=== PATIENT | female | born 1970 | race African-American/Black ===

== ENCOUNTER 2018-11-28 00:21 | Inpatient (IN) | payer MEDICARE, MEDICAID ==
[~2018-11-28] VITALS: Ht 162.6 cm; Wt 107.5 kg
[2018-11-28 01:17] LABS: HEMATOCRIT. 30.6 % (36.0-48.0); HEMOGLOBIN. 10.4 g/dL (12.0-16.0); MEAN CORPUSCULAR HEMOGLOBIN 30.3 pg (28.0-32.0); MEAN CORPUSCULAR VOLUME 89.3 fL (81.0-99.0); PLATELET 185 x1000/uL (130-400); RED BLOOD CELL COUNT 3.43 mill/uL (4.2-5.4); RED CELL DISTRIBUTION WIDTH 15.2 % (11.6-14.6)
[2018-11-28 01:24] LABS: CHLORIDE 110 mEq/L (98-107)
[2018-11-28 01:27] LABS: ETHANOL BLOOD < 10 mg/dL
[2018-11-28 01:27] LABS: CLARITY URINE CLEAR (CLEAR); COLOR URINE YELLOW (YELLOW); KETONES URINE NEGATIVE (NEGATIVE); LEUKOCYTE ESTERASE URINE NEGATIVE (NEGATIVE); NITRITE URINE NEGATIVE (NEGATIVE); OCCULT BLOOD URINE NEGATIVE (NEGATIVE); PH URINE 5.5 (4.5-8.0); PROTEIN URINE 2+ (NEGATIVE); SPECIFIC GRAVITY URINE 1.006 (1.005-1.030); UROBILINOGEN URINE 0.2 E.U./dL (0.2-1.0)
[2018-11-28 01:38] LABS: *AMPHETAMINES SCREEN URINE NEGATIVE (NEGATIVE); *BARBITURATES SCREEN URINE NEGATIVE (NEGATIVE); *BENZODIAZEPINES SCREEN URINE NEGATIVE (NEGATIVE); *COCAINE SCREEN URINE NEGATIVE (NEGATIVE)
[2018-11-28 01:39] LABS: CANNABINOID URINE SCREEN NEGATIVE (NEGATIVE); METHADONE URINE SCREEN NEGATIVE (NEGATIVE); OPIATES URINE SCREEN NEGATIVE (NEGATIVE); PHENCYCLIDINE URINE SCREEN NEGATIVE (NEGATIVE)
[2018-11-28 03:19] LABS: PLATELET ESTIMATE NORMAL
[2018-11-28] MEDS ORDERED: SODIUM CHLORIDE 0.9% 1,000 ML IV SCH (08:07)
[2018-11-28] MEDS ORDERED: ACETAMINOPHEN 650MG/20.3ML UDC GT PRN (08:15)
[2018-11-28] MEDS ORDERED: DIPHENHYDRAMINE 50MG/ML VIAL IV PRN (08:15)
[2018-11-28] MEDS ORDERED: DOCUSATE SODIUM 100MG CAPSULE PO PRN (08:15)
[2018-11-28] MEDS ORDERED: ACETAMINOPHEN 650MG SUPP PR PRN (08:15)
[2018-11-28] MEDS ORDERED: ONDANSETRON HCL 4MG/2ML INJ IV PRN (08:15)
[2018-11-28] MEDS ORDERED: IPRATROPIUM/ALBUTEROL 0.5-3(2.5)MG/3ML NEB INH PRN (08:15)
[2018-11-28] MEDS ORDERED: NA PHOS,M-B/NA PHOS,DI-BA ENEMA 118ML PR PRN (08:15)
[2018-11-28 11:31] LABS: CHLORIDE 114 mEq/L (98-107)
[2018-11-28 11:34] LABS: BASOPHILS % 1.2 % (0.0-2.0); EOSINOPHILS % 2.3 % (0.0-5.0); HEMATOCRIT. 32.3 % (36.0-48.0); HEMOGLOBIN. 10.8 g/dL (12.0-16.0); LYMPHOCYTES % 31.9 % (20.0-50.0); MEAN CORPUSCULAR HEMOGLOBIN 30.2 pg (28.0-32.0); MEAN CORPUSCULAR VOLUME 90.1 fL (81.0-99.0); MEAN PLATELET VOLUME 8.4 fl (7.4-10.4); MONOCYTES % 11.2 % (2.0-8.0); NEUTROPHILS % 53.4 % (40.0-76.0); PLATELET 180 x1000/uL (130-400); RED BLOOD CELL COUNT 3.59 mill/uL (4.2-5.4); RED CELL DISTRIBUTION WIDTH 15.4 % (11.6-14.6)
[2018-11-29] MEDS: HYDROCODONE/ACETAMINOPHEN 5/325MG TABLET PO PRN ×2 (00:48→22:29)
[2018-11-29 04:56] LABS: BASOPHILS % 0.9 % (0.0-2.0); EOSINOPHILS % 0.9 % (0.0-5.0); HEMATOCRIT. 31.8 % (36.0-48.0); HEMOGLOBIN. 10.7 g/dL (12.0-16.0); LYMPHOCYTES % 21.2 % (20.0-50.0); MEAN CORPUSCULAR HEMOGLOBIN 30.2 pg (28.0-32.0); MEAN CORPUSCULAR VOLUME 89.5 fL (81.0-99.0); MEAN PLATELET VOLUME 8.4 fl (7.4-10.4); MONOCYTES % 10.2 % (2.0-8.0); NEUTROPHILS % 66.8 % (40.0-76.0); PLATELET 182 x1000/uL (130-400); RED BLOOD CELL COUNT 3.56 mill/uL (4.2-5.4); RED CELL DISTRIBUTION WIDTH 15.6 % (11.6-14.6)
[2018-11-29 05:01] LABS: CHLORIDE 112 mEq/L (98-107)
[2018-11-29 05:08] LABS: LDL CHOLESTEROL 42 mg/dL (5-100)
[2018-11-29 05:09] LABS: HDL CHOLESTEROL 62 mg/dL (40-59)
[2018-11-29 13:38] VITALS: BP 140/98
[2018-11-29 14:07] VITALS: BP 140/98
[2018-11-29] MEDS ORDERED: TRAZ-213 MT (15:02)
[2018-11-29] MEDS ORDERED: DIVA-18 MT (15:02)
[2018-11-29] MEDS ORDERED: METO100T16 PO (15:02)
[2018-11-29] MEDS ORDERED: AMLO10TA4 MT (15:02)
[2018-11-29] MEDS ORDERED: QUET200T MT (15:02)
[2018-11-29] MEDS: SODIUM CHLORIDE 0.45% 1,000 ML IV SCH (16:14)
[2018-11-29] MEDS: SODIUM CHLORIDE 0.9% INJ 3ML FLUSH IVF SCH ×2 (16:24→21:11)
[2018-11-29 16:30] VITALS: BP 142/98
[2018-11-29] MEDS: AMLODIPINE 10MG TABLET PO SCH (18:32)
[2018-11-29 20:00] VITALS: BP 134/91
[2018-11-29] MEDS: QUETIAPINE FUMARATE 100MG TABLET PO SCH (21:11)
[2018-11-30 00:11] VITALS: BP 131/69
[2018-11-30] MEDS: SODIUM CHLORIDE 0.45% 1,000 ML IV SCH ×2 (00:23→12:20)
[2018-11-30 04:12] VITALS: BP 137/88
[2018-11-30] MEDS: SODIUM CHLORIDE 0.9% INJ 3ML FLUSH IVF SCH ×3 (06:16→21:30)
[2018-11-30 07:56] VITALS: BP 127/79
[2018-11-30] MEDS: AMLODIPINE 10MG TABLET PO SCH (08:51)
[2018-11-30 11:07] LABS: HEMATOCRIT. 29.6 % (36.0-48.0); HEMOGLOBIN. 9.8 g/dL (12.0-16.0); MEAN CORPUSCULAR HEMOGLOBIN 30.3 pg (28.0-32.0); MEAN CORPUSCULAR VOLUME 91.7 fL (81.0-99.0); PLATELET 164 x1000/uL (130-400); RED BLOOD CELL COUNT 3.23 mill/uL (4.2-5.4); RED CELL DISTRIBUTION WIDTH 15.3 % (11.6-14.6)
[2018-11-30 11:13] LABS: CHLORIDE 109 mEq/L (98-107)
[2018-11-30 11:47] LABS: PLATELET ESTIMATE NORMAL
[2018-11-30 12:00] VITALS: BP 131/62
[2018-11-30] MEDS ORDERED: SODIUM CHLORIDE 0.45% 1,000 ML IV SCH (15:00)
[2018-11-30 16:00] VITALS: BP 140/86
[2018-11-30 16:45] LABS: *AMPHETAMINES SCREEN URINE NEGATIVE (NEGATIVE)
[2018-11-30 16:46] LABS: *BARBITURATES SCREEN URINE NEGATIVE (NEGATIVE); *BENZODIAZEPINES SCREEN URINE NEGATIVE (NEGATIVE); *COCAINE SCREEN URINE NEGATIVE (NEGATIVE); METHADONE URINE SCREEN NEGATIVE (NEGATIVE); OPIATES URINE SCREEN NEGATIVE (NEGATIVE); PHENCYCLIDINE URINE SCREEN NEGATIVE (NEGATIVE)
[2018-11-30 16:47] LABS: CANNABINOID URINE SCREEN NEGATIVE (NEGATIVE)
[2018-11-30] MEDS: SODIUM CHLORIDE 45ML SPRAY NS PRN (18:57)
[2018-11-30 20:00] VITALS: BP 144/91
[2018-11-30] MEDS: QUETIAPINE FUMARATE 100MG TABLET PO SCH (21:30)
[2018-12-01] VITALS: BP 121/76
[2018-12-01 04:00] VITALS: BP 120/88
[2018-12-01] MEDS: SODIUM CHLORIDE 45ML SPRAY NS PRN (05:39)
[2018-12-01] MEDS: SODIUM CHLORIDE 0.9% INJ 3ML FLUSH IVF SCH ×3 (05:40→21:30)
[2018-12-01 07:55] VITALS: BP 118/76
[2018-12-01] MEDS: AMLODIPINE 10MG TABLET PO SCH (08:48)
[2018-12-01 12:00] VITALS: BP 136/90
[2018-12-01] MEDS: MAGNESIUM/ALUMINUM HYDROXIDE/SIMETHICONE 30ML UDC PO PRN (14:01)
[2018-12-01 16:00] VITALS: BP 144/88
[2018-12-01 18:03] LABS: HCG SCREEN NEGATIVE
[2018-12-01 19:23] LABS: UCG SCREEN NEGATIVE
[2018-12-01 20:00] VITALS: BP 152/96
[2018-12-01] MEDS: ACETAMINOPHEN 325MG TABLET PO PRN (20:46)
[2018-12-01] MEDS: QUETIAPINE FUMARATE 100MG TABLET PO SCH ×2 (20:46→21:00)
[2018-12-02] VITALS: BP 142/85
[2018-12-02 04:00] VITALS: BP 138/96
[2018-12-02] MEDS: SODIUM CHLORIDE 0.9% INJ 3ML FLUSH IVF SCH ×3 (06:03→22:23)
[2018-12-02] MEDS: AMLODIPINE 10MG TABLET PO SCH (10:00)
[2018-12-02 12:00] VITALS: BP 154/94
[2018-12-02] MEDS: HYDROCODONE/ACETAMINOPHEN 5/325MG TABLET PO PRN (12:25)
[2018-12-02 16:00] VITALS: BP 166/102
[2018-12-02] MEDS: CLONIDINE 0.1MG TABLET PO PRN (18:42)
[2018-12-02 19:39] VITALS: BP 166/113
[2018-12-02 21:40] VITALS: BP 147/93
[2018-12-02] MEDS: QUETIAPINE FUMARATE 100MG TABLET PO SCH (22:23)
[2018-12-03] VITALS: BP 159/102
[2018-12-03] MEDS: MAGNESIUM/ALUMINUM HYDROXIDE/SIMETHICONE 30ML UDC PO PRN (00:31)
[2018-12-03 04:00] VITALS: BP 140/99
[2018-12-03] MEDS: SODIUM CHLORIDE 0.9% INJ 3ML FLUSH IVF SCH ×3 (05:52→20:34)
[2018-12-03 08:00] VITALS: BP 158/110
[2018-12-03] MEDS: AMLODIPINE 10MG TABLET PO SCH (08:37)
[2018-12-03 12:00] VITALS: BP 148/97
[2018-12-03 13:29] LABS: HEMOGLOBIN. 11.2 g/dL (12.0-16.0); MEAN CORPUSCULAR HEMOGLOBIN 29.5 pg (28.0-32.0); MEAN CORPUSCULAR VOLUME 89.9 fL (81.0-99.0); MEAN PLATELET VOLUME 8.2 fl (7.4-10.4); PLATELET 199 x1000/uL (130-400); RED BLOOD CELL COUNT 3.78 mill/uL (4.2-5.4)
[2018-12-03 13:37] LABS: CHLORIDE 105 mEq/L (98-107)
[2018-12-03 14:01] LABS: PLATELET ESTIMATE NORMAL
[2018-12-03 16:00] VITALS: BP 150/105
[2018-12-03] MEDS: QUETIAPINE FUMARATE 100MG TABLET PO SCH (20:34)
[2018-12-04 04:00] VITALS: BP 177/86
[2018-12-04 08:00] VITALS: BP 150/113
[2018-12-04] MEDS: AMLODIPINE 10MG TABLET PO SCH (08:33)
[2018-12-04] MEDS: LORAZEPAM 1MG TABLET PO PRN ×2 (11:07→11:13)
[2018-12-04 12:00] VITALS: BP 164/101
[2018-12-04] MEDS: CLONIDINE 0.1MG TABLET PO PRN ×2 (12:57→16:34)
[2018-12-04] MEDS ORDERED: LORAZEPAM 0.5MG TABLET PO SCH (13:30)
[2018-12-04] MEDS: SODIUM CHLORIDE 0.9% INJ 3ML FLUSH IVF SCH ×2 (14:00→21:06)
[2018-12-04] MEDS: DIVALPROEX SODIUM 250MG DR TABLET PO SCH ×2 (16:34→21:06)
[2018-12-04] MEDS: QUETIAPINE FUMARATE 100MG TABLET PO SCH (20:56)
[2018-12-04] MEDS: TRAZODONE HCL 100MG TABLET PO SCH (20:56)
[2018-12-05 04:00] VITALS: BP 152/105
[2018-12-05] MEDS: SODIUM CHLORIDE 0.9% INJ 3ML FLUSH IVF SCH ×4 (05:01→22:00)
[2018-12-05 08:00] VITALS: BP 139/88
[2018-12-05] MEDS: LORAZEPAM 1MG TABLET PO PRN (08:42)
[2018-12-05] MEDS: DIVALPROEX SODIUM 250MG DR TABLET PO SCH ×2 (10:38→21:37)
[2018-12-05] MEDS: AMLODIPINE 10MG TABLET PO SCH (10:39)
[2018-12-05 12:00] VITALS: BP 140/92
[2018-12-05] MEDS ORDERED: QUETIAPINE FUMARATE 100MG TABLET PO SCH (12:00)
[2018-12-05 16:00] VITALS: BP 148/86
[2018-12-05] MEDS: ACETAMINOPHEN 325MG TABLET PO PRN (17:04)
[2018-12-05 17:17] LABS: BASOPHILS % 1.1 % (0.0-2.0); EOSINOPHILS % 0.9 % (0.0-5.0); HEMATOCRIT. 33.4 % (36.0-48.0); HEMOGLOBIN. 11.2 g/dL (12.0-16.0); LYMPHOCYTES % 34.1 % (20.0-50.0); MEAN CORPUSCULAR HEMOGLOBIN 30.1 pg (28.0-32.0); MEAN CORPUSCULAR VOLUME 90.2 fL (81.0-99.0); MEAN PLATELET VOLUME 8.4 fl (7.4-10.4); NEUTROPHILS % 50.9 % (40.0-76.0); PLATELET 211 x1000/uL (130-400); RED BLOOD CELL COUNT 3.71 mill/uL (4.2-5.4); RED CELL DISTRIBUTION WIDTH 15.1 % (11.6-14.6)
[2018-12-05 17:47] LABS: HEPATITIS B SURFACE ANTIGEN NEGATIVE
[2018-12-05 18:16] LABS: HEPATITIS A AB IGM NEGATIVE (NEGATIVE)
[2018-12-05 19:43] LABS: CHLORIDE 107 mEq/L (98-107)
[2018-12-05] MEDS: QUETIAPINE FUMARATE 100MG TABLET PO SCH (21:37)
[2018-12-05] MEDS: TRAZODONE HCL 100MG TABLET PO SCH (21:37)
[2018-12-06 04:00] VITALS: BP 133/85
[2018-12-06] MEDS: SODIUM CHLORIDE 0.9% INJ 3ML FLUSH IVF SCH (05:52)
[2018-12-06 08:00] VITALS: BP 128/82
[2018-12-06] MEDS: DIVALPROEX SODIUM 250MG DR TABLET PO SCH ×2 (08:31→20:57)
[2018-12-06] MEDS: AMLODIPINE 10MG TABLET PO SCH (08:32)
[2018-12-06] MEDS: MAGNESIUM/ALUMINUM HYDROXIDE/SIMETHICONE 30ML UDC PO PRN (12:05)
[2018-12-06 12:30] VITALS: BP 126/88
[2018-12-06 13:22] LABS: HEMATOCRIT. 31.8 % (36.0-48.0); HEMOGLOBIN. 10.5 g/dL (12.0-16.0); MEAN CORPUSCULAR HEMOGLOBIN 29.8 pg (28.0-32.0); MEAN PLATELET VOLUME 8.2 fl (7.4-10.4); PLATELET 208 x1000/uL (130-400); RED BLOOD CELL COUNT 3.53 mill/uL (4.2-5.4); RED CELL DISTRIBUTION WIDTH 14.8 % (11.6-14.6)
[2018-12-06 13:30] LABS: CHLORIDE 106 mEq/L (98-107)
[2018-12-06 13:52] LABS: PLATELET ESTIMATE NORMAL
[2018-12-06 16:30] VITALS: BP 132/82
[2018-12-06 20:00] VITALS: BP 118/71
[2018-12-06] MEDS: QUETIAPINE FUMARATE 100MG TABLET PO SCH (20:57)
[2018-12-06] MEDS: TRAZODONE HCL 100MG TABLET PO SCH (20:57)
[2018-12-06] MEDS: ACETAMINOPHEN 325MG TABLET PO PRN (20:58)
[2018-12-07] VITALS: BP 119/78
[2018-12-07] MEDS: LORAZEPAM 1MG TABLET PO PRN ×2 (00:38→17:20)
[2018-12-07 04:00] VITALS: BP 143/89
[2018-12-07 08:00] VITALS: BP 125/76
[2018-12-07] MEDS: AMLODIPINE 10MG TABLET PO SCH (09:15)
[2018-12-07] MEDS: DIVALPROEX SODIUM 250MG DR TABLET PO SCH ×2 (09:15→21:07)
[2018-12-07] MEDS: ACETAMINOPHEN 325MG TABLET PO PRN (09:18)
[2018-12-07 12:00] VITALS: BP 117/95
[2018-12-07 16:00] VITALS: BP 141/105
[2018-12-07 20:00] VITALS: BP 154/88
[2018-12-07] MEDS: TRAZODONE HCL 100MG TABLET PO SCH (21:06)
[2018-12-07] MEDS: QUETIAPINE FUMARATE 100MG TABLET PO SCH (21:07)
[2018-12-08] VITALS: BP 117/76
[2018-12-08 04:00] VITALS: BP 126/70
[2018-12-08 08:00] VITALS: BP 136/91
[2018-12-08] MEDS: LORAZEPAM 1MG TABLET PO PRN (08:39)
[2018-12-08] MEDS: DIVALPROEX SODIUM 250MG DR TABLET PO SCH (08:40)
[2018-12-08] MEDS: AMLODIPINE 10MG TABLET PO SCH (08:40)
[2018-12-08 12:00] VITALS: BP 131/77
[2018-12-08 15:48] VITALS: BP 131/77
== END 2018-12-08 16:58 | disposition home or self-care (01) | DRG 917 ==
LOC: ER 00:21 → CANBEDREQ 10:28 → 6WST 11-29 04:08 → ENRESERV 11-29 12:05
PROVIDERS: ADMIT Family Medicine; ATTEND Family Medicine
DX: T42.6X2A Poisoning by other antiepileptic and sedative-hypnotic drugs, intentional self-harm, initial encounter (principal); G92 Toxic encephalopathy; N17.9 Acute kidney failure, unspecified; E44.0 Moderate protein-calorie malnutrition; Z68.41 Body mass index [BMI] 40.0-44.9, adult; D63.8 Anemia in other chronic diseases classified elsewhere; E11.22 Type 2 diabetes mellitus with diabetic chronic kidney disease; E66.9 Obesity, unspecified; I12.9 Hypertensive chronic kidney disease with stage 1 through stage 4 chronic kidney disease, or unspecified chronic kidney disease; J44.9 Chronic obstructive pulmonary disease, unspecified; N18.9 Chronic kidney disease, unspecified; F31.9 Bipolar disorder, unspecified; Z88.8 Allergy status to other drugs, medicaments and biological substances; Y92.89 Other specified places as the place of occurrence of the external cause
CPT/HCPCS: 36415; 71045; 76700; 80061; 80076; 80165; 80185; 80305; 80307; 80320; 80329; 81025; 82140; 84703; 86705; 86709; 86803; 87340; 93005; 97161; 99284; 99291; C1893; J7030; G0480

== ENCOUNTER 2019-02-26 04:00 | Emergency (ER) | payer MEDICARE, MEDICAID ==
[~2019-02-26] VITALS: Ht 167.6 cm; Wt 82.0 kg
[~2019-02-26 04:00] MED LIST: AMLO10TA4 MT; DIVA-18 MT; METO100T16 PO; QUET200T MT; TRAZ-213 MT
[2019-02-26] MEDS ORDERED: MAGNESIUM/ALUMINUM HYDROXIDE/SIMETHICONE 30ML UDC PO ONE (04:45)
[2019-02-26] MEDS ORDERED: VISCOUS LIDOCAINE 2% 15 ML UDC PO ONE (04:45)
[2019-02-26 06:25] LABS: BASOPHILS % 0.7 % (0.0-2.0); EOSINOPHILS % 2.7 % (0.0-5.0); HEMATOCRIT. 34.3 % (36.0-48.0); HEMOGLOBIN. 11.4 g/dL (12.0-16.0); LYMPHOCYTES % 27.6 % (20.0-50.0); MEAN CORPUSCULAR HEMOGLOBIN 29.9 pg (28.0-32.0); MEAN CORPUSCULAR VOLUME 89.8 fL (81.0-99.0); MEAN PLATELET VOLUME 8.9 fl (7.4-10.4); MONOCYTES % 8.6 % (2.0-8.0); NEUTROPHILS % 60.4 % (40.0-76.0); PLATELET 222 x1000/uL (130-400); RED BLOOD CELL COUNT 3.82 mill/uL (4.2-5.4); RED CELL DISTRIBUTION WIDTH 13.9 % (11.6-14.6)
[2019-02-26 06:26] LABS: CHLORIDE 108 mEq/L (98-107)
[2019-02-26 06:29] LABS: ETHANOL BLOOD < 10 mg/dL
[2019-02-26 12:42] VITALS: BP 128/87
== END 2019-02-26 13:09 | disposition home or self-care (01) ==
LOC: ER 04:00
DX: R45.851 Suicidal ideations (principal); R07.89 Other chest pain; R00.0 Tachycardia, unspecified; Z76.5 Malingerer [conscious simulation]
CPT/HCPCS: 36415; 80320; 84484; 99283; G0480

== ENCOUNTER 2019-02-27 10:01 | Emergency (ER) | payer MEDICARE, MEDICAID ==
[~2019-02-27] VITALS: Ht 167.6 cm; Wt 80.0 kg
[2019-02-27 10:06] VITALS: BP 126/94
== END 2019-02-27 11:53 | disposition left against medical advice (07) ==
LOC: ER 10:01
DX: R05 Cough (principal); R09.81 Nasal congestion; Z53.21 Procedure and treatment not carried out due to patient leaving prior to being seen by health care provider

== ENCOUNTER 2019-02-27 11:43 | Emergency (ER) | payer MEDICARE, MEDICAID ==
[~2019-02-27] VITALS: Ht 167.6 cm; Wt 90.0 kg
[2019-02-27 14:00] VITALS: BP 121/78
== END 2019-02-27 14:00 | disposition home or self-care (01) ==
LOC: ER 11:44
DX: R07.89 Other chest pain (principal); Z59.0 Homelessness; J44.9 Chronic obstructive pulmonary disease, unspecified; E11.9 Type 2 diabetes mellitus without complications; I10 Essential (primary) hypertension; I25.2 Old myocardial infarction; M79.7 Fibromyalgia; Z79.899 Other long term (current) drug therapy; Z88.8 Allergy status to other drugs, medicaments and biological substances
CPT/HCPCS: 36415; 84484; 93005; 99284

== ENCOUNTER 2019-03-10 15:02 | Inpatient (IN) | payer MEDICARE, MEDICAID ==
[~2019-03-10] VITALS: Ht 162.6 cm; Wt 97.5 kg
[2019-03-10] MEDS ORDERED: MORPHINE SULFATE 4 MG/ML CPJ (NOT FOR IM USE) IV STA (15:25)
[2019-03-10 16:00] LABS: CHLORIDE 105 mEq/L (98-107)
[2019-03-10 16:04] LABS: EOSINOPHILS % 4.6 % (0.0-5.0); HEMATOCRIT. 31.1 % (36.0-48.0); HEMOGLOBIN. 10.5 g/dL (12.0-16.0); LYMPHOCYTES % 28.8 % (20.0-50.0); MEAN CORPUSCULAR HEMOGLOBIN 29.9 pg (28.0-32.0); MEAN CORPUSCULAR VOLUME 88.4 fL (81.0-99.0); MEAN PLATELET VOLUME 8.3 fl (7.4-10.4); MONOCYTES % 6.9 % (2.0-8.0); NEUTROPHILS % 58.7 % (40.0-76.0); PLATELET 263 x1000/uL (130-400); RED BLOOD CELL COUNT 3.52 mill/uL (4.2-5.4); RED CELL DISTRIBUTION WIDTH 13.6 % (11.6-14.6)
[2019-03-10] MEDS ORDERED: IPRATROPIUM/ALBUTEROL 0.5-3(2.5)MG/3ML NEB INH PRN (18:15)
[2019-03-10] MEDS ORDERED: DOCUSATE SODIUM 100MG CAPSULE PO PRN (18:15)
[2019-03-10] MEDS ORDERED: LORAZEPAM 0.5MG TABLET PO PRN (18:15)
[2019-03-10] MEDS ORDERED: ONDANSETRON HCL 4MG/2ML INJ IV PRN (18:15)
[2019-03-10] MEDS ORDERED: CLONIDINE 0.1MG TABLET PO PRN (18:15)
[2019-03-10] MEDS ORDERED: HYDROCODONE/ACETAMINOPHEN 5/325MG TABLET PO PRN (18:15)
[2019-03-10] MEDS ORDERED: ACETAMINOPHEN 325MG TABLET PO PRN (18:15)
[2019-03-10 18:38] LABS: CLARITY URINE CLOUDY (CLEAR); COLOR URINE YELLOW (YELLOW); KETONES URINE NEGATIVE (NEGATIVE); LEUKOCYTE ESTERASE URINE TRACE (NEGATIVE); NITRITE URINE NEGATIVE (NEGATIVE); OCCULT BLOOD URINE NEGATIVE (NEGATIVE); PROTEIN URINE 2+ (NEGATIVE); SPECIFIC GRAVITY URINE 1.008 (1.005-1.030); UROBILINOGEN URINE 0.2 E.U./dL (0.2-1.0)
[2019-03-10 18:54] LABS: *AMPHETAMINES SCREEN URINE NEGATIVE (NEGATIVE); *BARBITURATES SCREEN URINE NEGATIVE (NEGATIVE); *BENZODIAZEPINES SCREEN URINE NEGATIVE (NEGATIVE); *COCAINE SCREEN URINE NEGATIVE (NEGATIVE); METHADONE URINE SCREEN NEGATIVE (NEGATIVE)
[2019-03-10 18:55] LABS: CANNABINOID URINE SCREEN NEGATIVE (NEGATIVE); OPIATES URINE SCREEN NEGATIVE (NEGATIVE); PHENCYCLIDINE URINE SCREEN NEGATIVE (NEGATIVE)
[2019-03-10 22:00] VITALS: BP 126/93
[2019-03-11 00:12] LABS: CREATINE KINASE MB FRACTION 5.5 ng/mL (0.5-3.6)
[2019-03-11 04:00] VITALS: BP 108/59
[2019-03-11 05:22] LABS: BASOPHILS % 0.8 % (0.0-2.0); EOSINOPHILS % 5.2 % (0.0-5.0); HEMATOCRIT. 30.1 % (36.0-48.0); LYMPHOCYTES % 36.2 % (20.0-50.0); MEAN CORPUSCULAR HEMOGLOBIN 29.6 pg (28.0-32.0); MEAN CORPUSCULAR VOLUME 88.8 fL (81.0-99.0); MEAN PLATELET VOLUME 8.3 fl (7.4-10.4); MONOCYTES % 8.7 % (2.0-8.0); NEUTROPHILS % 49.1 % (40.0-76.0); PLATELET 253 x1000/uL (130-400); RED BLOOD CELL COUNT 3.39 mill/uL (4.2-5.4); RED CELL DISTRIBUTION WIDTH 13.6 % (11.6-14.6)
[2019-03-11 06:12] LABS: CHLORIDE 105 mEq/L (98-107)
[2019-03-11 06:27] LABS: LDL CHOLESTEROL 56 mg/dL (5-100)
[2019-03-11 06:30] LABS: HDL CHOLESTEROL 50 mg/dL (40-59)
[2019-03-11 08:00] VITALS: BP 150/86
[2019-03-11 12:00] VITALS: BP 140/94
[2019-03-11] MEDS: NICOTINE 14MG PATCH TD SCH (15:45)
[2019-03-11 16:00] VITALS: BP 140/86
[2019-03-11] MEDS: AMLODIPINE 10MG TABLET PO SCH (16:18)
[2019-03-11] MEDS: METHYLPREDNISOLONE SOD SUCC 40 MG/ML VIAL IV SCH ×2 (16:19→22:36)
[2019-03-11] MEDS: DIVALPROEX SODIUM 500MG ER TABLET PO SCH (16:19)
[2019-03-11 20:00] VITALS: BP 129/88
[2019-03-11] MEDS: CARBAMAZEPINE 200MG TABLET PO SCH (20:47)
[2019-03-11] MEDS: METOPROLOL TARTRATE 25MG TABLET PO SCH (20:48)
[2019-03-11] MEDS ORDERED: TRAZODONE HCL 50MG TABLET PO SCH (21:00)
[2019-03-11] MEDS ORDERED: QUETIAPINE FUMARATE 50MG TABLET PO SCH (21:00)
[2019-03-11] MEDS: IPRATROPIUM/ALBUTEROL 0.5-3(2.5)MG/3ML NEB HHN SCH (21:36)
[2019-03-11] MEDS: BUDESONIDE 0.5MG/2ML NEB HHN SCH (21:36)
[2019-03-12] VITALS: BP 116/61
[2019-03-12] MEDS: IPRATROPIUM/ALBUTEROL 0.5-3(2.5)MG/3ML NEB HHN SCH ×4 (01:10→12:09)
[2019-03-12 04:00] VITALS: BP 145/86
[2019-03-12] MEDS: METHYLPREDNISOLONE SOD SUCC 40 MG/ML VIAL IV SCH ×2 (05:27→14:00)
[2019-03-12] MEDS: BUDESONIDE 0.5MG/2ML NEB HHN SCH (07:55)
[2019-03-12 08:00] VITALS: BP 136/88
[2019-03-12] MEDS: NICOTINE 14MG PATCH TD SCH (09:00)
[2019-03-12 09:15] LABS: BASOPHILS % 0.4 % (0.0-2.0); EOSINOPHILS % 0.4 % (0.0-5.0); HEMATOCRIT. 28.8 % (36.0-48.0); HEMOGLOBIN. 9.6 g/dL (12.0-16.0); LYMPHOCYTES % 17.1 % (20.0-50.0); MEAN CORPUSCULAR HEMOGLOBIN 29.6 pg (28.0-32.0); MEAN CORPUSCULAR VOLUME 88.8 fL (81.0-99.0); MEAN PLATELET VOLUME 8.2 fl (7.4-10.4); MONOCYTES % 1.8 % (2.0-8.0); NEUTROPHILS % 80.3 % (40.0-76.0); PLATELET 221 x1000/uL (130-400); RED BLOOD CELL COUNT 3.25 mill/uL (4.2-5.4); RED CELL DISTRIBUTION WIDTH 13.5 % (11.6-14.6)
[2019-03-12 09:19] LABS: HCG SCREEN NEGATIVE
[2019-03-12] MEDS: DIVALPROEX SODIUM 500MG ER TABLET PO SCH (09:54)
[2019-03-12] MEDS: CARBAMAZEPINE 200MG TABLET PO SCH (09:54)
[2019-03-12] MEDS: AMLODIPINE 10MG TABLET PO SCH (09:55)
[2019-03-12] MEDS: METOPROLOL TARTRATE 25MG TABLET PO SCH (09:55)
[2019-03-12 12:00] VITALS: BP 114/73
[2019-03-12 15:09] VITALS: BP 114/73
[2019-03-12 16:00] VITALS: BP 126/63
== END 2019-03-12 15:46 | disposition home or self-care (01) | DRG 205 ==
LOC: ER 15:02 → 6WST 17:05 → ENRESERV 20:42
PROVIDERS: ADMIT Internal Medicine; ATTEND Internal Medicine
DX: M94.0 Chondrocostal junction syndrome [Tietze] (principal); J96.00 Acute respiratory failure, unspecified whether with hypoxia or hypercapnia; J44.1 Chronic obstructive pulmonary disease with (acute) exacerbation; N39.0 Urinary tract infection, site not specified; D64.9 Anemia, unspecified; D72.1 Eosinophilia; E11.22 Type 2 diabetes mellitus with diabetic chronic kidney disease; E66.9 Obesity, unspecified; F17.210 Nicotine dependence, cigarettes, uncomplicated; E78.5 Hyperlipidemia, unspecified; F31.9 Bipolar disorder, unspecified; G40.909 Epilepsy, unspecified, not intractable, without status epilepticus; I12.9 Hypertensive chronic kidney disease with stage 1 through stage 4 chronic kidney disease, or unspecified chronic kidney disease; I25.10 Atherosclerotic heart disease of native coronary artery without angina pectoris; F41.9 Anxiety disorder, unspecified; N18.2 Chronic kidney disease, stage 2 (mild); M79.7 Fibromyalgia; Z79.84 Long term (current) use of oral hypoglycemic drugs; F19.10 Other psychoactive substance abuse, uncomplicated; I25.2 Old myocardial infarction; Z79.899 Other long term (current) drug therapy; Z91.5 Personal history of self-harm; Z88.8 Allergy status to other drugs, medicaments and biological substances; Z71.3 Dietary counseling and surveillance; Z95.5 Presence of coronary angioplasty implant and graft; Z72.89 Other problems related to lifestyle; Z71.6 Tobacco abuse counseling; Z68.36 Body mass index [BMI] 36.0-36.9, adult
CPT/HCPCS: 36415; 71045; 80048; 80061; 80305; 82550; 82553; 82728; 82962; 83036; 83540; 83550; 83880; 84145; 84443; 84484; 84703; 93005; 93306; 94640; 96374; 99285; J2270; J2920; J7620; J7626

== ENCOUNTER 2019-03-24 22:31 | Inpatient (IN) | payer MEDICAID, MEDICARE ==
[~2019-03-24] VITALS: Ht 162.6 cm; Wt 95.7 kg
[~2019-03-24 22:31] MED LIST changes: -AMLO10TA4 MT; +AMLO10TA4 PO; -DIVA-18 MT; +DIVA-18 PO; -METO100T16 PO; -QUET200T MT; +QUET200T PO; -TRAZ-213 MT; +TRAZ-213 PO
[2019-03-24] MEDS ORDERED: METHYLPREDNISOLONE SOD SUCC 125 MG/2 ML VIAL IV STA (23:03)
[2019-03-24] MEDS ORDERED: ALBUTEROL (0.083%) 2.5MG/3ML NEB HHN STA (23:03)
[2019-03-24] MEDS ORDERED: HYDROCODONE/ACETAMINOPHEN 5/325MG TABLET PO STA (23:03)
[2019-03-24] MEDS ORDERED: IPRATROPIUM BROMIDE (0.02%) 0.5MG/2.5ML NEB HHN STA (23:03)
[2019-03-24] MEDS ORDERED: MAGNESIUM 2 G PREMIX 50 ML IV ONE (23:15)
[2019-03-24] MEDS ORDERED: NITROGLYCERIN 0.4MG TABLET SL SL PRN (23:15)
[2019-03-24 23:49] LABS: BASOPHILS % 0.6 % (0.0-2.0); CHLORIDE 107 mEq/L (98-107); EOSINOPHILS % 3.3 % (0.0-5.0); HEMATOCRIT. 29.4 % (36.0-48.0); HEMOGLOBIN. 10.1 g/dL (12.0-16.0); MEAN CORPUSCULAR VOLUME 87.8 fL (81.0-99.0); MEAN PLATELET VOLUME 8.5 fl (7.4-10.4); MONOCYTES % 9.4 % (2.0-8.0); NEUTROPHILS % 53.7 % (40.0-76.0); PLATELET 193 x1000/uL (130-400); RED BLOOD CELL COUNT 3.35 mill/uL (4.2-5.4); RED CELL DISTRIBUTION WIDTH 14.1 % (11.6-14.6)
[2019-03-25] MEDS ORDERED: ACETAMINOPHEN 500MG TABLET PO ONE (00:15)
[2019-03-25] MEDS ORDERED: PREDNISONE 20MG TABLET PO ONE (00:15)
[2019-03-25 03:00] VITALS: BP 143/80
[2019-03-25] MEDS ORDERED: CARB200T PO (03:06)
[2019-03-25 04:00] VITALS: BP 147/90
[2019-03-25] MEDS ORDERED: MORPHINE SULFATE 2 MG/ML CPJ (NOT FOR IM USE) IV PRN (04:45)
[2019-03-25 08:00] VITALS: BP 144/86
[2019-03-25] MEDS ORDERED: IPRATROPIUM/ALBUTEROL 0.5-3(2.5)MG/3ML NEB HHN SCH (08:00)
[2019-03-25] MEDS ORDERED: AMLODIPINE 10MG TABLET PO SCH (09:00)
[2019-03-25] MEDS ORDERED: CARBAMAZEPINE 200MG TABLET PO SCH (09:00)
[2019-03-25] MEDS ORDERED: ENOXAPARIN 40MG/0.4ML SYR SUBCUT SCH (09:00)
[2019-03-25] MEDS ORDERED: DIVALPROEX SODIUM 250MG DR TABLET PO SCH (09:00)
[2019-03-25] MEDS ORDERED: DEXTROSE 50% WATER 50ML SYRINGE IV PRN (09:15)
[2019-03-25] MEDS ORDERED: METHYLPREDNISOLONE SOD SUCC 40 MG/ML VIAL IV SCH (11:15)
[2019-03-25 12:00] VITALS: BP 147/88
[2019-03-25] MEDS ORDERED: BLOOD SUGAR DIAGNOSTIC STRIP TEST SCH (12:10)
[2019-03-25] MEDS ORDERED: INSULIN LISPRO 100 UNITS/ML SUBCUT SCH ×2 (12:10→12:40)
[2019-03-25] MEDS ORDERED: BUDESONIDE 0.5MG/2ML NEB HHN SCH (13:00)
[2019-03-25 14:00] LABS: BASOPHILS % 0.3 % (0.0-2.0); EOSINOPHILS % 0.1 % (0.0-5.0); HEMATOCRIT. 29.1 % (36.0-48.0); LYMPHOCYTES % 17.4 % (20.0-50.0); MEAN CORPUSCULAR VOLUME 87.5 fL (81.0-99.0); MEAN PLATELET VOLUME 8.7 fl (7.4-10.4); MONOCYTES % 7.2 % (2.0-8.0); PLATELET 188 x1000/uL (130-400); RED BLOOD CELL COUNT 3.32 mill/uL (4.2-5.4); RED CELL DISTRIBUTION WIDTH 14.3 % (11.6-14.6)
[2019-03-25 14:05] LABS: CHLORIDE 104 mEq/L (98-107)
[2019-03-25 14:15] LABS: CREATINE KINASE 60 IU/L (26-192)
[2019-03-25] MEDS ORDERED: QUETIAPINE FUMARATE 50MG TABLET PO SCH (21:00)
[2019-03-25] MEDS ORDERED: HYDRALAZINE HCL 50MG TABLET PO SCH (21:00)
[2019-03-25] MEDS ORDERED: INSULIN GLARGINE UD 100 UNITS/ML SYR SUBCUT SCH ×2 (22:00)
== END 2019-03-25 14:20 | disposition left against medical advice (07) | DRG 205 ==
LOC: ER 22:31 → ENRESERV 03-25 01:31 → 8WST 03-25 02:45
PROVIDERS: ADMIT Internal Medicine Nephrology; ATTEND Internal Medicine Nephrology
DX: M94.0 Chondrocostal junction syndrome [Tietze] (principal); J96.00 Acute respiratory failure, unspecified whether with hypoxia or hypercapnia; E44.0 Moderate protein-calorie malnutrition; J44.1 Chronic obstructive pulmonary disease with (acute) exacerbation; N17.9 Acute kidney failure, unspecified; E66.9 Obesity, unspecified; F17.210 Nicotine dependence, cigarettes, uncomplicated; F31.9 Bipolar disorder, unspecified; G40.909 Epilepsy, unspecified, not intractable, without status epilepticus; I12.9 Hypertensive chronic kidney disease with stage 1 through stage 4 chronic kidney disease, or unspecified chronic kidney disease; I25.10 Atherosclerotic heart disease of native coronary artery without angina pectoris; I27.20 Pulmonary hypertension, unspecified; N18.9 Chronic kidney disease, unspecified; E11.22 Type 2 diabetes mellitus with diabetic chronic kidney disease; D64.9 Anemia, unspecified; Z53.21 Procedure and treatment not carried out due to patient leaving prior to being seen by health care provider; I36.1 Nonrheumatic tricuspid (valve) insufficiency; Z91.5 Personal history of self-harm; Z95.5 Presence of coronary angioplasty implant and graft; Z98.51 Tubal ligation status; Z79.84 Long term (current) use of oral hypoglycemic drugs; Z88.8 Allergy status to other drugs, medicaments and biological substances; Z79.899 Other long term (current) drug therapy; Z68.36 Body mass index [BMI] 36.0-36.9, adult; Z71.6 Tobacco abuse counseling; Z71.3 Dietary counseling and surveillance; I25.2 Old myocardial infarction; Z98.84 Bariatric surgery status
CPT/HCPCS: 36415; 71045; 80048; 82550; 82553; 82962; 83880; 84484; 93005; 94640; 99285; J1650; J1815; J2270; J2930; J3475; J7512; J7620

== ENCOUNTER 2019-03-25 15:44 | Emergency (ER) | payer MEDICARE ==
[~2019-03-25] VITALS: Ht 170.2 cm; Wt 91.0 kg
[~2019-03-25 15:44] MED LIST changes: +CARB200T PO
[2019-03-25] MEDS ORDERED: ACETAMINOPHEN 325MG TABLET PO STA (16:01)
[2019-03-25 16:57] LABS: CLARITY URINE CLOUDY (CLEAR); COLOR URINE YELLOW (YELLOW); KETONES URINE NEGATIVE (NEGATIVE); LEUKOCYTE ESTERASE URINE TRACE (NEGATIVE); NITRITE URINE NEGATIVE (NEGATIVE); OCCULT BLOOD URINE NEGATIVE (NEGATIVE); PROTEIN URINE 1+ (NEGATIVE); SPECIFIC GRAVITY URINE 1.006 (1.005-1.030); UROBILINOGEN URINE 0.2 E.U./dL (0.2-1.0)
[2019-03-25 17:06] LABS: *AMPHETAMINES SCREEN URINE NEGATIVE (NEGATIVE); *BARBITURATES SCREEN URINE NEGATIVE (NEGATIVE); *BENZODIAZEPINES SCREEN URINE NEGATIVE (NEGATIVE); *COCAINE SCREEN URINE NEGATIVE (NEGATIVE)
[2019-03-25 17:08] LABS: CANNABINOID URINE SCREEN NEGATIVE (NEGATIVE); METHADONE URINE SCREEN NEGATIVE (NEGATIVE); PHENCYCLIDINE URINE SCREEN NEGATIVE (NEGATIVE)
[2019-03-25 17:13] LABS: BASOPHILS % 0.5 % (0.0-2.0); EOSINOPHILS % 0.1 % (0.0-5.0); HEMATOCRIT. 29.2 % (36.0-48.0); HEMOGLOBIN. 9.8 g/dL (12.0-16.0); LYMPHOCYTES % 21.2 % (20.0-50.0); MEAN CORPUSCULAR HEMOGLOBIN 29.5 pg (28.0-32.0); MEAN CORPUSCULAR VOLUME 87.6 fL (81.0-99.0); MEAN PLATELET VOLUME 8.8 fl (7.4-10.4); MONOCYTES % 10.3 % (2.0-8.0); NEUTROPHILS % 67.9 % (40.0-76.0); PLATELET 219 x1000/uL (130-400); RED BLOOD CELL COUNT 3.33 mill/uL (4.2-5.4)
[2019-03-25 17:16] LABS: CHLORIDE 107 mEq/L (98-107)
[2019-03-25 17:20] LABS: OPIATES URINE SCREEN PRESUMTIVE POSITIVE (NEGATIVE)
[2019-03-25 17:20] LABS: ETHANOL BLOOD < 10 mg/dL
[2019-03-25 18:30] VITALS: BP 118/71
== END 2019-03-25 18:51 | disposition home or self-care (01) ==
LOC: ER 15:44
DX: R06.00 Dyspnea, unspecified (principal); J44.9 Chronic obstructive pulmonary disease, unspecified; F31.9 Bipolar disorder, unspecified; E11.9 Type 2 diabetes mellitus without complications; I10 Essential (primary) hypertension; I25.2 Old myocardial infarction; Z98.51 Tubal ligation status; F12.10 Cannabis abuse, uncomplicated; Z79.899 Other long term (current) drug therapy; Z88.8 Allergy status to other drugs, medicaments and biological substances
CPT/HCPCS: 36415; 71045; 80305; 80320; 81025; 84484; 93005; 99284; G0480

== ENCOUNTER 2019-03-25 20:10 | Emergency (ER) | payer MEDICARE ==
[~2019-03-25] VITALS: Ht 165.1 cm; Wt 97.0 kg
[2019-03-26 12:06] VITALS: BP 122/85
== END 2019-03-26 12:08 | disposition home or self-care (01) ==
LOC: ER 20:10
DX: R45.851 Suicidal ideations (principal); Z59.0 Homelessness; I10 Essential (primary) hypertension
CPT/HCPCS: 99284

== ENCOUNTER 2019-04-04 18:34 | Emergency (ER) | payer MEDICARE ==
[~2019-04-04] VITALS: Ht 162.6 cm; Wt 82.0 kg
[2019-04-04] MEDS ORDERED: TRAMADOL 50MG TABLET PO ONE (20:30)
[2019-04-04] MEDS ORDERED: PREDNISONE 20MG TABLET PO ONE (20:30)
[2019-04-04] MEDS ORDERED: IPRATROPIUM/ALBUTEROL 0.5-3(2.5)MG/3ML NEB HHN ONE (20:30)
[2019-04-04 23:55] VITALS: BP 122/78
== END 2019-04-05 | disposition home or self-care (01) ==
LOC: ER 19:05
DX: J44.9 Chronic obstructive pulmonary disease, unspecified (principal); F31.9 Bipolar disorder, unspecified; E11.9 Type 2 diabetes mellitus without complications; I10 Essential (primary) hypertension; I25.2 Old myocardial infarction; F12.10 Cannabis abuse, uncomplicated; Z87.448 Personal history of other diseases of urinary system; Z86.69 Personal history of other diseases of the nervous system and sense organs; Z98.51 Tubal ligation status; Z79.899 Other long term (current) drug therapy; Z88.8 Allergy status to other drugs, medicaments and biological substances
CPT/HCPCS: 71045; 93005; 94640; 99283; J7512; J7620

== ENCOUNTER 2019-04-22 15:11 | Emergency (ER) | payer MEDICARE, SELFPAY ==
[~2019-04-22] VITALS: Ht 162.6 cm; Wt 97.0 kg
[2019-04-22] MEDS ORDERED: IBUPROFEN 600MG TABLET PO STA (16:16)
[2019-04-22 16:55] LABS: BASOPHILS % 0.8 % (0.0-2.0); HEMATOCRIT. 30.8 % (36.0-48.0); HEMOGLOBIN. 10.3 g/dL (12.0-16.0); LYMPHOCYTES % 34.6 % (20.0-50.0); MEAN CORPUSCULAR VOLUME 86.3 fL (81.0-99.0); MEAN PLATELET VOLUME 8.3 fl (7.4-10.4); NEUTROPHILS % 51.6 % (40.0-76.0); PLATELET 213 x1000/uL (130-400); RED BLOOD CELL COUNT 3.57 mill/uL (4.2-5.4); RED CELL DISTRIBUTION WIDTH 14.9 % (11.6-14.6)
[2019-04-22 16:59] LABS: CHLORIDE 110 mEq/L (98-107)
[2019-04-22 17:02] LABS: ETHANOL BLOOD < 10 mg/dL
[2019-04-22 19:49] LABS: CLARITY URINE CLEAR (CLEAR); COLOR URINE YELLOW (YELLOW); KETONES URINE NEGATIVE (NEGATIVE); LEUKOCYTE ESTERASE URINE NEGATIVE (NEGATIVE); NITRITE URINE NEGATIVE (NEGATIVE); OCCULT BLOOD URINE NEGATIVE (NEGATIVE); PROTEIN URINE 1+ (NEGATIVE); SPECIFIC GRAVITY URINE 1.005 (1.005-1.030); UROBILINOGEN URINE 0.2 E.U./dL (0.2-1.0)
[2019-04-22 20:04] LABS: *AMPHETAMINES SCREEN URINE NEGATIVE (NEGATIVE); *BARBITURATES SCREEN URINE NEGATIVE (NEGATIVE); *BENZODIAZEPINES SCREEN URINE NEGATIVE (NEGATIVE)
[2019-04-22 20:05] LABS: *COCAINE SCREEN URINE NEGATIVE (NEGATIVE); CANNABINOID URINE SCREEN NEGATIVE (NEGATIVE); METHADONE URINE SCREEN NEGATIVE (NEGATIVE); OPIATES URINE SCREEN NEGATIVE (NEGATIVE); PHENCYCLIDINE URINE SCREEN NEGATIVE (NEGATIVE)
[2019-04-23] MEDS ORDERED: ACETAMINOPHEN 325MG TABLET PO ONE
[2019-04-23 09:21] VITALS: BP 147/87
[2019-04-23] MEDS ORDERED: CARBAMAZEPINE 200MG TABLET PO ONE (09:30)
[2019-04-23] MEDS ORDERED: AMLODIPINE 10MG TABLET PO ONE (09:30)
[2019-04-23] MEDS ORDERED: DIVALPROEX SODIUM 250MG ER TABLET PO ONE (09:30)
== END 2019-04-23 12:45 | disposition home or self-care (01) ==
LOC: ER 15:11
DX: F20.9 Schizophrenia, unspecified (principal); R45.851 Suicidal ideations; N28.9 Disorder of kidney and ureter, unspecified; D63.1 Anemia in chronic kidney disease; E11.22 Type 2 diabetes mellitus with diabetic chronic kidney disease; E11.65 Type 2 diabetes mellitus with hyperglycemia; I13.10 Hypertensive heart and chronic kidney disease without heart failure, with stage 1 through stage 4 chronic kidney disease, or unspecified chronic kidney disease; N18.9 Chronic kidney disease, unspecified; F17.210 Nicotine dependence, cigarettes, uncomplicated; M79.7 Fibromyalgia; J44.9 Chronic obstructive pulmonary disease, unspecified; Z98.51 Tubal ligation status; Z71.6 Tobacco abuse counseling
CPT/HCPCS: 36415; 71045; 80053; 80305; 80320; 81003; 82962; 85025; 93005; 99284; 99406; Z7610; G0480

== ENCOUNTER 2019-05-14 18:08 | Emergency (ER) | payer MEDICARE, MEDICAID ==
[~2019-05-14] VITALS: Ht 160 cm; Wt 91.0 kg
[2019-05-14] MEDS ORDERED: ONDANSETRON HCL 4MG/2ML INJ IV STA (19:22)
[2019-05-14] MEDS ORDERED: SODIUM CHLORIDE 0.9% 1,000 ML IV ONE (19:22)
[2019-05-14] MEDS ORDERED: ASPIRIN 81MG TABLET PO ONE (19:30)
[2019-05-14 20:34] LABS: BASOPHILS % 0.5 % (0.0-2.0); EOSINOPHILS % 2.5 % (0.0-5.0); HEMATOCRIT. 29.1 % (36.0-48.0); HEMOGLOBIN. 9.6 g/dL (12.0-16.0); MEAN CORPUSCULAR HEMOGLOBIN 28.6 pg (28.0-32.0); MEAN CORPUSCULAR VOLUME 86.6 fL (81.0-99.0); MEAN PLATELET VOLUME 7.9 fl (7.4-10.4); MONOCYTES % 11.1 % (2.0-8.0); NEUTROPHILS % 53.9 % (40.0-76.0); PLATELET 230 x1000/uL (130-400); RED BLOOD CELL COUNT 3.36 mill/uL (4.2-5.4); RED CELL DISTRIBUTION WIDTH 14.7 % (11.6-14.6)
[2019-05-14 20:42] LABS: CHLORIDE 109 mEq/L (98-107)
[2019-05-14 22:40] VITALS: BP 135/89
== END 2019-05-14 22:40 | disposition home or self-care (01) ==
LOC: ER 18:08
DX: R07.89 Other chest pain (principal); E11.22 Type 2 diabetes mellitus with diabetic chronic kidney disease; I13.10 Hypertensive heart and chronic kidney disease without heart failure, with stage 1 through stage 4 chronic kidney disease, or unspecified chronic kidney disease; N18.9 Chronic kidney disease, unspecified; J44.9 Chronic obstructive pulmonary disease, unspecified; F20.9 Schizophrenia, unspecified; Z98.51 Tubal ligation status; Z88.8 Allergy status to other drugs, medicaments and biological substances
CPT/HCPCS: 36415; 71045; 80053; 83880; 84484; 85025; 93005; 96361; 96374; 99284; J2405; J7030; Z7610

== ENCOUNTER 2019-05-15 00:41 | Emergency (ER) | payer MEDICARE, MEDICAID ==
[~2019-05-15] VITALS: Ht 162.6 cm; Wt 96.0 kg
[2019-05-15] MEDS ORDERED: ASPIRIN 81MG TABLET PO ONE (04:00)
[2019-05-15 04:18] LABS: BASOPHILS % 0.6 % (0.0-2.0); EOSINOPHILS % 2.7 % (0.0-5.0); HEMOGLOBIN. 9.8 g/dL (12.0-16.0); LYMPHOCYTES % 33.3 % (20.0-50.0); MEAN CORPUSCULAR HEMOGLOBIN 28.6 pg (28.0-32.0); MEAN CORPUSCULAR VOLUME 87.1 fL (81.0-99.0); MEAN PLATELET VOLUME 7.7 fl (7.4-10.4); MONOCYTES % 9.8 % (2.0-8.0); NEUTROPHILS % 53.6 % (40.0-76.0); PLATELET 241 x1000/uL (130-400); RED BLOOD CELL COUNT 3.44 mill/uL (4.2-5.4); RED CELL DISTRIBUTION WIDTH 14.6 % (11.6-14.6)
[2019-05-15 04:24] LABS: CHLORIDE 108 mEq/L (98-107)
[2019-05-15 04:28] LABS: ETHANOL BLOOD < 10 mg/dL
[2019-05-15 06:20] LABS: *AMPHETAMINES SCREEN URINE NEGATIVE (NEGATIVE); *BARBITURATES SCREEN URINE NEGATIVE (NEGATIVE)
[2019-05-15 06:21] LABS: *BENZODIAZEPINES SCREEN URINE NEGATIVE (NEGATIVE); *COCAINE SCREEN URINE NEGATIVE (NEGATIVE); CANNABINOID URINE SCREEN NEGATIVE (NEGATIVE); METHADONE URINE SCREEN NEGATIVE (NEGATIVE); OPIATES URINE SCREEN NEGATIVE (NEGATIVE); PHENCYCLIDINE URINE SCREEN NEGATIVE (NEGATIVE)
[2019-05-15 17:53] VITALS: BP 145/90
== END 2019-05-15 17:57 | disposition home or self-care (01) ==
LOC: ER 00:41
DX: R07.9 Chest pain, unspecified (principal); R44.0 Auditory hallucinations; R45.851 Suicidal ideations; R45.850 Homicidal ideations; I25.2 Old myocardial infarction; E11.22 Type 2 diabetes mellitus with diabetic chronic kidney disease; N18.9 Chronic kidney disease, unspecified; F31.9 Bipolar disorder, unspecified; J44.9 Chronic obstructive pulmonary disease, unspecified; F20.9 Schizophrenia, unspecified; F14.10 Cocaine abuse, uncomplicated; F12.10 Cannabis abuse, uncomplicated; F15.10 Other stimulant abuse, uncomplicated; F17.200 Nicotine dependence, unspecified, uncomplicated; Z59.0 Homelessness; Z98.890 Other specified postprocedural states; Z79.899 Other long term (current) drug therapy; Z88.8 Allergy status to other drugs, medicaments and biological substances
CPT/HCPCS: 36415; 80053; 80305; 80320; 83880; 84484; 85025; 93005; 99283; Z7610; G0480

== ENCOUNTER 2019-09-08 01:24 | Emergency (ER) | payer MEDICARE, MEDICAID ==
[~2019-09-08] VITALS: Ht 160 cm; Wt 90.0 kg
[~2019-09-08 01:24] MED LIST changes: -TRAZ-213 PO; +TRAZ-252 PO
[2019-09-08 01:42] VITALS: BP 172/103
[2019-09-09] MEDS ORDERED: DIVA-75 MT (19:31)
[2019-09-09] MEDS ORDERED: TRAZ-252 MT (20:05)
[2019-09-09] MEDS ORDERED: QUET200T MT (20:05)
== END 2019-09-08 08:06 | disposition left against medical advice (07) ==
LOC: ER 01:24
DX: Z53.21 Procedure and treatment not carried out due to patient leaving prior to being seen by health care provider (principal)